=== PATIENT | male | born 1980 | race African-American/Black ===

== ENCOUNTER 2020-01-16 14:48 | Emergency (ER) | payer SELFPAY ==
[2020-01-16] MEDS ORDERED: LIDOCAINE HCL 1% 20 ML VIAL ONE (16:26)
== END 2020-01-16 16:53 | disposition home or self-care (01) ==
LOC: EDH 14:48
DX: S63.286A Dislocation of proximal interphalangeal joint of right little finger, initial encounter (principal); K02.9 Dental caries, unspecified; X58.XXXA Exposure to other specified factors, initial encounter; Y93.89 Activity, other specified; Y92.89 Other specified places as the place of occurrence of the external cause; Y99.8 Other external cause status
CPT/HCPCS: 26770; 73140